=== PATIENT | female | born 1975 | race Hispanic/Latino ===

== ENCOUNTER → 2017-09-23 | Outpatient (CLI) | payer OTHER ==
[2017-09-23 12:40] LABS: BILIRUBIN,DIRECT 0.1 mg/dL (0.0-0.5)
== END ==
LOC: LAB 11:58
PROVIDERS: ATTEND Podiatrist Foot & Ankle Surgery
DX: B35.1 Tinea unguium (principal)
CPT/HCPCS: 36415; 80076